=== PATIENT | female | born 1975 | race Caucasian/White ===

== ENCOUNTER 2021-12-23 18:39 | Emergency (ER) | payer OTHER ==
[~2021-12-23] VITALS: Ht 162.6 cm; Wt 58.5 kg
[2021-12-23] MEDS ORDERED: LIPITOR40 M1 PO (19:08)
[2021-12-23] MEDS ORDERED: MACRODANTIN100 M1 PO (21:30)
== END 2021-12-23 21:47 | disposition home or self-care (01) ==
LOC: ER 18:39
DX: N39.0 Urinary tract infection, site not specified (principal); Z88.6 Allergy status to analgesic agent; Z88.2 Allergy status to sulfonamides